=== PATIENT | female | born 1960 | race Two or more races ===

== ENCOUNTER 2023-10-03 15:56 | Observation (INO) | payer OTHER ==
[2023-10-03 16:43] LABS: HEMATOCRIT 35.1 % (32.4-45.2); HEMOGLOBIN 11.7 G/dL (10.7-15.3); MCH 29.3 pg (25.7-33.7); MCHC 33.3 g/dl (32.0-36.0); MEAN CELL VOLUME 88.1 fl (80-96); MEAN PLT VOLUME 8.1 fl (7.5-11.1); PLATELET COUNT 311.6 10^3/uL (134-434); RBC 3.98 10^6/uL (3.60-5.2); RDW 14.7 % (11.6-15.6); WHITE BLOOD COUNT 7.6 10^3/uL (4.0-10.8)
[2023-10-03 16:50] LABS: PLATELET ESTIMATE ADEQUATE
[2023-10-03 17:04] LABS: ALBUMIN 4.2 g/dl (3.4-5.0); BILIRUBIN,TOTAL 0.5 mg/dl (0.2-1); CALCIUM 9.5 mg/dl (8.5-10.1); CREATININE 0.8 mg/dl (0.6-1.3); TOT PROT 7.1 g/dl (6.4-8.2)
[2023-10-03] MEDS ORDERED: ASPIRIN 81 MG CHEWABLE TABLETS PO ONE (18:27)
[2023-10-03] MEDS ORDERED: ASPIRIN 81 MG CHEWABLE TABLETS ONE (18:38)
[2023-10-03] MEDS ORDERED: ACETAMINOPHEN 325 MG TABLET (FP) PO PRN (18:50)
[2023-10-03 22:34] VITALS: BMI 30.4
[2023-10-04 08:24] LABS: HEMATOCRIT 32.8 % (32.4-45.2); HEMOGLOBIN 10.9 G/dL (10.7-15.3); MCH 29.2 pg (25.7-33.7); MCHC 33.1 g/dl (32.0-36.0); MEAN CELL VOLUME 88.1 fl (80-96); MEAN PLT VOLUME 8.5 fl (7.5-11.1); PLATELET COUNT 270.2 10^3/uL (134-434); RBC 3.72 10^6/uL (3.60-5.2); RDW 14.8 % (11.6-15.6)
[2023-10-04 09:38] LABS: CREATININE 0.7 mg/dl (0.6-1.3); POTASSIUM 4.1 mmol/L (3.5-5.1)
[2023-10-04] MEDS ORDERED: ASPIRIN COATED 81 MG TABLET.EC PO SCH (10:00)
[2023-10-04] MEDS ORDERED: ROSUVASTATIN CA 40 MG TABLET PO ONE (10:06)
[2023-10-04] MEDS ORDERED: LISINOPRIL 20 MG TABLET PO SCH (10:15)
[2023-10-04] MEDS ORDERED: ROSUVASTATIN CA 20 MG TABLET PO ONE (11:00)
[2023-10-04 17:57] VITALS: BP 114/54; PULSE 70; RESP 17; TEMP 98.1
[2023-10-05] MEDS ORDERED: ATORVASTATIN CA 40 MG TABLET (FP) PO SCH (22:00)
== END 2023-10-04 19:12 | disposition home or self-care (01) ==
LOC: FER 15:56 → FM/S 18:51
PROVIDERS: ADMIT Internal Medicine
DX: G45.9 Transient cerebral ischemic attack, unspecified (principal); I10 Essential (primary) hypertension; R61 Generalized hyperhidrosis; R29.810 Facial weakness; R42 Dizziness and giddiness; Z29.89 Encounter for other specified prophylactic measures
CPT/HCPCS: 0241U-QW; 36415; 70450-TC; 70496-TC; 70498-TC; 70551-TC; 80048; 80053; 80061; 81003; 83036; 83605; 84146; 84439; 84443; 84484; 85025; 85027; 93005; 93306-TC; 93880-TC; 99291; G0378